=== PATIENT | female | born 1960 | race Caucasian/White ===

== ENCOUNTER 2020-09-07 12:08 | Emergency (ER) | payer OTHER ==
[~2020-09-07] VITALS: Ht 160 cm; Wt 98.9 kg
[~2020-09-07 12:08] MED LIST: APAP500 PO; CARISOPRODOL 3350 M1; CIPRO500 MG PO; DESYREL100 MG PO; DICLOFENAC SODI75 M1 PO; FLAGYL500 MG PO; HYDROCHLOROTHIA25 M1 PO; K-DUR 20 MEQ T20 MEQ PO; KEFLEX500 MG PO; LEVOTHYROXIN0.125 M1 PO; LORTAB 5 MG/5001 TA1; NORCO 5-325 TA1 EACH PO; OSELB75 PO; PERCOCET 5-3251 EACH PO; PHENAZOPYRIDIN200 M2 PO; PHENERGAN 25 MG25 M1 PO; POTASSIUM99 M1; POTASSIUM99 M1 PO; TRAZODONE HCL50 MG PO; TUMS CHEWA500 MG/11 PO; UNIRETIC PO; VALIUM2 MG PO; VALIUM5 MG PO; VICODIN 5-5001 EACH PO
[2020-09-07 14:23] LABS: ABSOLUTE NEUTROPHILS 2.7 thou/uL (1.4-8.2); BASOPHILS 1.1 % (0.0-2.0); EOSINOPHILS 1.5 % (0.0-3.0); HEMATOCRIT 41.9 % (37.0-47.0); HEMOGLOBIN 13.9 gm/dL (12.0-15.0); LYMPHOCYTES 47.4 % (24.0-44.0); MCH 31.8 pg (26.0-34.0); MCHC 33.1 g/dL (28.0-37.0); MCV 96.1 fL (80.0-100.0); MONOCYTES 6.7 % (1.0-8.0); PLATELET COUNT 206 thou/uL (150-400); POLYS 43.3 % (36.0-66.0); RBC 4.36 mil/uL (4.20-5.00); WBC 6.3 thou/uL (4.0-11.0)
[2020-09-07 14:33] LABS: CALCIUM 9.3 mg/dL (8.5-10.1); CREATININE 0.8 mg/dL (0.6-1.0); POTASSIUM 3.5 mmol/L (3.5-5.1)
[2020-09-07 19:13] VITALS: BP 129/83
== END 2020-09-07 19:13 | disposition home or self-care (01) ==
LOC: ER 12:08
PROVIDERS: Emergency Medicine
DX: G43.909 Migraine, unspecified, not intractable, without status migrainosus (principal); J45.909 Unspecified asthma, uncomplicated; E03.9 Hypothyroidism, unspecified; Z98.890 Other specified postprocedural states; Z90.89 Acquired absence of other organs; Z79.899 Other long term (current) drug therapy; Z79.2 Long term (current) use of antibiotics; Z88.8 Allergy status to other drugs, medicaments and biological substances; Z91.040 Latex allergy status

== ENCOUNTER 2021-06-23 00:35 | Inpatient (IN) | payer OTHER ==
[~2021-06-23] VITALS: Ht 162.6 cm; Wt 104.8 kg
[2021-06-23 02:37] VITALS: BP 145/86
[2021-06-23 04:20] LABS: CALCIUM 8.8 mg/dL (8.5-10.1); CREATININE 0.8 mg/dL (0.6-1.0); MAGNESIUM 2.3 mg/dL (1.8-2.4); POTASSIUM 3.7 mmol/L (3.5-5.1)
[2021-06-23] MEDS ORDERED: LEVOTHYROXINE150 MC1 PO (04:40)
[2021-06-23] MEDS ORDERED: DIAZEPAM 5 MG5 M1 PO (04:41)
[2021-06-23 07:19] LABS: HEMOGLOBIN 13.4 gm/dL (12.0-15.0); MCHC 33.5 g/dL (28.0-37.0); MCV 95.7 fL (80.0-100.0); RBC 4.18 mil/uL (4.20-5.00); RDW 12.6 % (10.5-14.5); WBC 6.6 thou/uL (4.0-11.0)
--- NOTE | 2021-06-23 08:31 | NUR ---
PT ADMITTED TO ROOM 219, MICAH,K ROUNDED ON PT, VSS, EKG DONE, GIVEN IBUPROPHEN GIVEN FO STARK, EDUCATION COMPLETED NO FURTHER QUESTIONS FROM PT, REPORT GIVEN TO NEXT SHIFT TO CON'T PPOC.
[2021-06-23 09:29] VITALS: BP 132/78
[2021-06-23 12:00] VITALS: BP 123/70
--- NOTE | 2021-06-23 13:26 | 2DMMODE ---
[facility] [place] [address] 2 D/M-MODE ECHOCARDIOGRAM Name: ELSY MARTIN Room #: 219-P ADM IN M.R.#: [id number] Admission: 06/23/21 Attend Phys: Abena Jeong Discharge: Date of : 64 Report #: [id number] THIS REPORT FOR: cc: Avelino Martinez MD, John R. MD Lundgren, Craig H. MD [facility] ~ APPROVED REPORT Study performed: 06/23/2021 10:08:32 EXAM: Comprehensive 2D, Doppler, and color-flow Echocardiogram Patient Location: Echo lab Room #: 219 Status: on-call BSA: 2.08 HR: 73 bpm BP: 145/86 mmHg Rhythm: NSR Other Information Study Quality: Adequate Risk Factors: Cardiac Risk Factors: HTN Indications Dyspnea Palpitations Syncope Hypertension/HDD 2D Dimensions IVSd: 8.02 (7-11mm) LVOT Diam: 19.00 (18-24mm) LVDd: 40.87 mm PWd: 9.26 (7-11mm) Ascending Ao: 34.61 (22-36mm) LVDs: 30.56 (25-40mm) Aortic Root: 28.20 mm LV Single Plane 4CH: 54.21 % LV Single Plane 2CH: 58.66 % Biplane EF: 56.0 % Volumes Left Atrial Volume (Systole) Single Plane 4CH: 49.39 mL Single Plane 2CH: 43.74 mL [facility] [address] [place] [address] 2 D/M-MODE ECHOCARDIOGRAM Name: ELSY MARTIN Room #: 219-P [facility] ..#: [id number] Admission: 06/23/21 Attend Phys: Abena Garcia Discharge: Date of : 64 Report #: [id number] ESV Index: 28.00 mL/m2 Aortic Valve AoV Peak Benedicto.: 1.22 m/s AO Peak Gr.: 5.97 mmHg LVOT Max P.72 mmHg LVOT Max V: 0.96 m/s RADHA Vmax: 2.34 cm2 Mitral Valve E/A Ratio: 0.8 MV Decel. Time: 235.60 ms MV E Max Benedicto.: 0.78 m/s MV A Benedicto.: 1.01 m/s MV PHT: 68.32 ms IVRT: 92.27 ms TDI E/Lateral E': 8.67 E/Medial E': 7.80 Medial E' Benedicto.: 0.10 m/s Lateral E' Benedicto.: 0.09 m/s Pulmonary Valve PV Peak Benedicto.: 0.90 m/s PV Peak Gr.: 3.26 mmHg Pulmonary Vein P Vein S: 0.66 m/s P Vein A: 0.28 m/s P Vein D: 0.49 m/s P Vein A Dur.: 92.3 msec P Vein S/D Ratio: 1.35 Tricuspid Valve TR Peak Benedicto.: 2.19 m/s RAP Estimate: 7.00 mmHg TR Peak Gr.: 19.25 mmHg PA Pressure: 26.00 mmHg Left Ventricle The left ventricle is normal size. There is normal LV segmental wall motion. There is normal left ventricular wall thickness. Left ventricular systolic function is normal. The left ventricular ejection fraction is within the normal range. LVEF is 60-65%. Mild diastolic dysfunction Right Ventricle The right ventricle is normal size. The right ventricular systolic function is normal. [facility] [address] [place] [address] 2 D/M-MODE ECHOCARDIOGRAM Name: ELSY MARTIN Alicia Room #: 219-P ADM IN M.R.#: [id number] Admission: 06/23/21 Attend Phys: Abena Garcia Discharge: Date of : 64 Report #: [id number] The left atrium size is normal. The right atrium size is normal. Aortic Valve The aortic valve is normal in structure. No aortic regurgitation is present. There is no aortic valvular stenosis. Mitral Valve The mitral valve is normal in structure. Trace mitral regurgitation. No evidence of mitral valve stenosis. Tricuspid Valve The tricuspid valve is normal in structure. Mild tricuspid regurgitation. Pulmonary artery pressure is 25 mmHg. Pulmonic Valve The pulmonary valve is normal in structure. Mild pulmonic regurgitation. Great Vessels The aortic root is normal in size. The ascending aorta is normal in size. IVC is normal in size and collapses >50% with inspiration. Pericardium There is no pericardial effusion. <Conclusion> Left ventricular systolic function is normal. There is normal LV segmental wall motion. LVEF is 60-65%. Mild diastolic dysfunction The aortic valve is normal in structure. No aortic regurgitation or stenosis The mitral valve is normal in structure. Trace mitral regurgitation. Mild tricuspid regurgitation. Pulmonary artery pressure of 25 mmHg. There is no pericardial effusion. <ELECTRONICALLY SIGNED> By: Geo Rivas MD, FACC 06/23/21 1326 132 25 Geo Rivas MD, FACC /INF
--- NOTE | 2021-06-23 14:55 | NUR ---
ASSUMED CARE OF PT AT 0700. PT IS RESTING INBED AT TIME OF SHIFT CHANGE. PT IS PLESANT AND COOPERATIVE WT MEDICATIONS AND ASSESSMETN THIS AM. PT IS INDEPEND WITH CARES IN ROOM. PT IS RESTING IN ROOM AT THIS TIME. WILL CONTINUE TO MONITOR.
--- NOTE | 2021-06-23 15:06 | EKG ---
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
--- NOTE | 2021-06-23 15:10 | EKG ---
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
[2021-06-23] MEDS ORDERED: METOPROLOL SUCC50 MG PO (16:53)
[2021-06-23 17:34] VITALS: BP 123/70
--- NOTE | 2021-06-23 18:25 | NUR ---
PT IS DICHARGED HOME WITH SELF CARE. PTS PRESCTIPTION IS SENT TO [facility]. PTS IV IS REMOVED AND TELE MONIOTR D/C'D. PT IS GIVEN ALL DISCHARGED AND FOLLOW UP INSTRUCTIONS. PT HAS NO QUESTIONS AT THIS TIME AND AMBULATED OFF OF UNIT ACCOMPANIED BY .
== END 2021-06-23 18:26 | disposition home or self-care (01) | DRG 310 ==
LOC: 2N 00:35
PROVIDERS: Nurse Practitioner Family; ADMIT Hospitalist; ATTEND Hospitalist
DX: I49.3 Ventricular premature depolarization (principal); I10 Essential (primary) hypertension; J45.909 Unspecified asthma, uncomplicated; E89.0 Postprocedural hypothyroidism; G43.909 Migraine, unspecified, not intractable, without status migrainosus; G47.33 Obstructive sleep apnea (adult) (pediatric); Z88.8 Allergy status to other drugs, medicaments and biological substances; Z91.040 Latex allergy status
CPT/HCPCS: 10081

== ENCOUNTER → 2021-07-06 | Outpatient (CLI) | payer OTHER ==
[~2021-07-06] MED LIST changes: +DIAZEPAM 5 MG5 M1 PO; +LEVOTHYROXINE150 MC1 PO; +METOPROLOL SUCC50 MG PO
== END ==
LOC: SJCVCIMAG 09:44
PROVIDERS: ATTEND Internal Medicine Cardiovascular Disease
DX: I49.3 Ventricular premature depolarization (principal); R00.2 Palpitations; R55 Syncope and collapse; R07.9 Chest pain, unspecified; R06.00 Dyspnea, unspecified; R42 Dizziness and giddiness; M79.602 Pain in left arm